=== PATIENT | female | born 1975 | race Two or more races ===

== ENCOUNTER 2019-04-22 05:40 | Day surgery (SDC) | payer OTHER ==
[~2019-04-22 05:40] MED LIST: DICY20TA PO
[2019-04-22] MEDS ORDERED: PERCOCET 5-3251 EACH PO (09:12)
[2019-04-22] MEDS ORDERED: POLY119PG PO (09:13)
[2019-04-22] MEDS ORDERED: NEURONTIN600 M1 PO (09:13)
[2019-04-22] MEDS ORDERED: SURFAK240 M1 PO (09:13)
== END 2019-04-22 11:47 | disposition home or self-care (01) ==
LOC: CIR.AMB 05:40 → SURG 10:30 → CIR.AMB 10:30 → EDSTATUS 10:30 → CIR.AMB 11:47
DX: K80.10 Calculus of gallbladder with chronic cholecystitis without obstruction (principal); K42.9 Umbilical hernia without obstruction or gangrene; K43.2 Incisional hernia without obstruction or gangrene